=== PATIENT | male | born 1965 | race Caucasian/White ===

== ENCOUNTER 2017-09-12 15:54 | Emergency (ER) | payer OTHER ==
[2017-09-12 17:14] VITALS: BP 154/106
== END 2017-09-12 17:14 | disposition home or self-care (01) ==
LOC: ED 15:54
DX: R41.3 Other amnesia (principal); I10 Essential (primary) hypertension

== ENCOUNTER 2018-05-02 12:03 | Emergency (ER) | payer OTHER ==
[~2018-05-02] VITALS: Ht 167.6 cm; Wt 80.4 kg
[2018-05-02 13:09] LABS: CALCIUM 8.4 mg/dL (8.5-10.1); CARBON DIOXIDE 27.6 mmol/L (21-32); CHLORIDE SERUM 104 mmol/L (98-107); CREATININE SERUM 0.9 mg/dL (0.7-1.3); GFR1 > 60 mL/min; GLUCOSE SERUM 142 mg/dL (74-106); POTASSIUM SERUM 3.4 mmol/L (3.5-5.1); SODIUM SERUM 139 mmol/L (136-145)
[2018-05-02 13:39] VITALS: BP 131/79
== END 2018-05-02 13:39 | disposition home or self-care (01) ==
LOC: ED 12:03
PROVIDERS: Emergency Medicine
DX: I16.0 Hypertensive urgency (principal); F43.0 Acute stress reaction; R51 Headache; E78.00 Pure hypercholesterolemia, unspecified

== ENCOUNTER 2018-05-09 07:38 | Emergency (ER) | payer OTHER ==
[~2018-05-09] VITALS: Ht 167.6 cm; Wt 787.4 kg
[2018-05-09 07:41] VITALS: Ht 167.6 cm; Wt 787.4 kg
[2018-05-09 08:34] LABS: BASOPHIL % 0.4 % (0-2); PLATELET COUNT 268 x10^3mcL (130-400); RED CELL DISTRIBUTION WIDTH 14.1 % (11.5-14.5)
[2018-05-09 08:35] LABS: CALCIUM 8.8 mg/dL (8.5-10.1); CHLORIDE SERUM 100 mmol/L (98-107); CREATININE SERUM 0.8 mg/dL (0.7-1.3); GFR1 > 60 mL/min; GLUCOSE SERUM 107 mg/dL (74-106); POTASSIUM SERUM 3.8 mmol/L (3.5-5.1); SODIUM SERUM 136 mmol/L (136-145)
[2018-05-09 08:41] LABS: ALBUMIN 3.9 g/dL (3.4-5.0); ALKALINE PHOSPHATASE 80 U/L (46-116); ALT/SGPT 33 U/L (16-63); AMYLASE 46 U/L (25-115); AST/SGOT 19 U/L (15-37); BILIRUBIN TOTAL 0.6 mg/dL (0.20-1.00); LIPASE 165 IU/L (73-393)
[2018-05-09 08:54] LABS: microscopic required? YES; urine erythrocyte 1+ (NEGATIVE)
[2018-05-09 12:50] VITALS: BP 150/78
== END 2018-05-09 12:50 | disposition home or self-care (01) ==
LOC: ED 07:38
PROVIDERS: Emergency Medicine
DX: R10.13 Epigastric pain (principal); R11.0 Nausea; R63.0 Anorexia
CPT/HCPCS: 83880; J2270; J2405; J7030; Q9967

== ENCOUNTER 2018-05-09 22:22 | Emergency (ER) | payer OTHER ==
[~2018-05-09] VITALS: Ht 167.6 cm; Wt 78.9 kg
[2018-05-09 22:24] VITALS: Ht 167.6 cm; Wt 78.9 kg
[2018-05-09 23:56] LABS: CALCIUM 9.1 mg/dL (8.5-10.1); CARBON DIOXIDE 27.4 mmol/L (21-32); CHLORIDE SERUM 101 mmol/L (98-107); CREATININE SERUM 0.7 mg/dL (0.7-1.3); GFR1 > 60 mL/min; GLUCOSE SERUM 116 mg/dL (74-106); POTASSIUM SERUM 3.9 mmol/L (3.5-5.1); SODIUM SERUM 137 mmol/L (136-145)
[2018-05-10 00:09] LABS: ALBUMIN 3.9 g/dL (3.4-5.0)
[2018-05-10 00:10] LABS: ALKALINE PHOSPHATASE 89 U/L (46-116); ALT/SGPT 75 U/L (16-63); AST/SGOT 40 U/L (15-37); BILIRUBIN TOTAL 0.7 mg/dL (0.20-1.00); LIPASE 157 IU/L (73-393)
[2018-05-10 01:31] VITALS: BP 128/77
== END 2018-05-10 01:31 | disposition home or self-care (01) ==
LOC: ED 22:22
PROVIDERS: Emergency Medicine
DX: R10.13 Epigastric pain (principal); E78.00 Pure hypercholesterolemia, unspecified; I10 Essential (primary) hypertension
CPT/HCPCS: J1885

== ENCOUNTER 2018-05-15 21:28 | Emergency (ER) | payer OTHER ==
[~2018-05-15] VITALS: Ht 167.6 cm; Wt 78.0 kg
[2018-05-15 21:33] VITALS: Ht 167.6 cm; Wt 78.0 kg
[2018-05-15 23:31] VITALS: BP 134/85
== END 2018-05-15 23:31 | disposition home or self-care (01) ==
LOC: ED 21:28
DX: I10 Essential (primary) hypertension (principal); E78.00 Pure hypercholesterolemia, unspecified

== ENCOUNTER 2018-05-18 04:25 | Emergency (ER) | payer OTHER ==
[~2018-05-18] VITALS: Ht 167.6 cm; Wt 78.5 kg
[2018-05-18 04:30] VITALS: BP 139/91; Ht 167.6 cm; Wt 78.5 kg
== END 2018-05-18 05:32 | disposition home or self-care (01) ==
LOC: ED 04:25
DX: R10.10 Upper abdominal pain, unspecified (principal); G47.00 Insomnia, unspecified; I10 Essential (primary) hypertension; E78.00 Pure hypercholesterolemia, unspecified

== ENCOUNTER 2018-05-19 06:08 | Emergency (ER) | payer OTHER ==
[~2018-05-19] VITALS: Ht 167.6 cm; Wt 76.7 kg
[2018-05-19 06:15] VITALS: BP 154/98; Ht 167.6 cm; Wt 76.7 kg
== END 2018-05-19 06:43 | disposition home or self-care (01) ==
LOC: ED 06:08
DX: G47.00 Insomnia, unspecified (principal); I10 Essential (primary) hypertension; F41.9 Anxiety disorder, unspecified; E78.00 Pure hypercholesterolemia, unspecified